=== PATIENT | male | born 1970 | race African-American/Black ===

== ENCOUNTER 2021-05-22 09:05 | Emergency (ER) | payer MEDICAID ==
[~2021-05-22] VITALS: Ht 182.9 cm; Wt 160.0 kg
[2021-05-22 09:07] VITALS: BP 126/70
[2021-05-22] MEDS ORDERED: ACETAMINOPHEN 325MG TABLET PO ONE (09:30)
== END 2021-05-22 09:44 | disposition left against medical advice (07) ==
LOC: ER 09:05
DX: M79.672 Pain in left foot (principal); M25.522 Pain in left elbow; I11.0 Hypertensive heart disease with heart failure; I50.9 Heart failure, unspecified; E11.9 Type 2 diabetes mellitus without complications; Z13.9 Encounter for screening, unspecified; Z86.73 Personal history of transient ischemic attack (TIA), and cerebral infarction without residual deficits; Z98.890 Other specified postprocedural states; W03.XXXA Other fall on same level due to collision with another person, initial encounter; Y93.89 Activity, other specified; Y92.89 Other specified places as the place of occurrence of the external cause; Y99.8 Other external cause status
CPT/HCPCS: 99283

== ENCOUNTER 2021-05-22 10:54 | Emergency (ER) | payer MEDICAID ==
[~2021-05-22] VITALS: Ht 180.3 cm; Wt 120.0 kg
[2021-05-22 11:00] VITALS: BP 139/75
[2021-05-22] MEDS ORDERED: HYDROCODONE/ACETAMINOPHEN 5/325MG TABLET PO STA (11:02)
== END 2021-05-22 12:20 | disposition left against medical advice (07) ==
LOC: ER 11:24
DX: S90.32XA Contusion of left foot, initial encounter (principal); S50.01XA Contusion of right elbow, initial encounter; I11.0 Hypertensive heart disease with heart failure; I50.9 Heart failure, unspecified; E11.9 Type 2 diabetes mellitus without complications; Z86.73 Personal history of transient ischemic attack (TIA), and cerebral infarction without residual deficits; W18.30XA Fall on same level, unspecified, initial encounter; Y93.89 Activity, other specified; Y92.89 Other specified places as the place of occurrence of the external cause; Y99.8 Other external cause status
CPT/HCPCS: 71045; 73080; 73630; 99284; Z7610

== ENCOUNTER 2021-11-27 12:33 | Inpatient (IN) | payer MEDICAID, OTHER ==
[~2021-11-27] VITALS: Ht 182.9 cm; Wt 215.9 kg
[2021-11-27 13:47] LABS: EOSINOPHILS % 1.9 % (0.0-5.0); HEMATOCRIT. 44.9 % (42.0-52.0); HEMOGLOBIN. 14.5 g/dL (14.0-18.0); LYMPHOCYTES % 16.2 % (20.0-50.0); MEAN CORPUSCULAR HEMOGLOBIN 28.5 pg (28.0-32.0); MEAN CORPUSCULAR VOLUME 88.4 fL (80.0-94.0); MEAN PLATELET VOLUME 8.8 fl (7.4-10.4); MONOCYTES % 9.6 % (2.0-8.0); NEUTROPHILS % 71.3 % (40.0-76.0); PLATELET 276 x1000/uL (130-400); RED BLOOD CELL COUNT 5.09 mill/uL (4.7-6.1)
[2021-11-27 13:52] LABS: CHLORIDE 107 mEq/L (98-107)
[2021-11-27 14:15] LABS: DIGOXIN < 0.1 ng/mL (0.9-2.0)
[2021-11-27] MEDS ORDERED: ASPIRIN 325MG EC TABLET PO ONE (22:15)
[2021-11-27] MEDS ORDERED: FUROSEMIDE 40MG TABLET PO ONE (22:15)
[2021-11-28 07:14] LABS: CLARITY URINE CLEAR (CLEAR); COLOR URINE DARK YELLOW (YELLOW); KETONES URINE TRACE (NEGATIVE); LEUKOCYTE ESTERASE URINE NEGATIVE (NEGATIVE); NITRITE URINE NEGATIVE (NEGATIVE); OCCULT BLOOD URINE NEGATIVE (NEGATIVE); PROTEIN URINE 3+ (NEGATIVE); SPECIFIC GRAVITY URINE 1.021 (1.005-1.030)
[2021-11-28] MEDS ORDERED: ONDANSETRON HCL 4MG/2ML INJ IV PRN (09:45)
[2021-11-28 10:39] VITALS: BP 132/111
[2021-11-28] MEDS ORDERED: ASPI-986 PO (11:09)
[2021-11-28] MEDS ORDERED: FURO40TA5 PO (11:09)
[2021-11-28] MEDS ORDERED: SIMV10TA97 PO (11:09)
[2021-11-28 12:00] VITALS: BP 132/103
[2021-11-28] MEDS: DOCUSATE SODIUM 250MG CAPSULE PO SCH (13:39)
[2021-11-28 16:00] VITALS: BP 119/89
[2021-11-28] MEDS: FUROSEMIDE 40MG/4ML VIAL IVP SCH (17:04)
[2021-11-28] MEDS: LISINOPRIL 5MG TABLET PO SCH (17:04)
[2021-11-28 20:00] VITALS: BP 135/88
[2021-11-28] MEDS: CARVEDILOL 6.25 MG TABLET PO SCH (21:22)
[2021-11-29] VITALS: BP 137/92
[2021-11-29 00:10] LABS: *AMPHETAMINES SCREEN URINE NEGATIVE (NEGATIVE); *BARBITURATES SCREEN URINE NEGATIVE (NEGATIVE); *BENZODIAZEPINES SCREEN URINE NEGATIVE (NEGATIVE); *COCAINE SCREEN URINE NEGATIVE (NEGATIVE)
[2021-11-29 00:11] LABS: CANNABINOID URINE SCREEN PRESUMTIVE POSITIVE (NEGATIVE); METHADONE URINE SCREEN NEGATIVE (NEGATIVE); OPIATES URINE SCREEN NEGATIVE (NEGATIVE); PHENCYCLIDINE URINE SCREEN PRESUMTIVE POSITIVE (NEGATIVE)
[2021-11-29] MEDS: ACETAMINOPHEN 325MG TABLET PO PRN (00:54)
[2021-11-29 04:00] VITALS: BP 130/98
[2021-11-29 08:00] VITALS: BP 116/58
[2021-11-29] MEDS: DOCUSATE SODIUM 250MG CAPSULE PO SCH (10:10)
[2021-11-29] MEDS: FUROSEMIDE 40MG/4ML VIAL IVP SCH ×2 (10:10→18:48)
[2021-11-29] MEDS: LISINOPRIL 5MG TABLET PO SCH (10:11)
[2021-11-29] MEDS: CARVEDILOL 6.25 MG TABLET PO SCH ×2 (10:11→21:35)
[2021-11-29 12:00] VITALS: BP 108/49
[2021-11-29] MEDS ORDERED: COR6 PO (14:04)
[2021-11-29] MEDS ORDERED: LISI-186 PO (14:04)
[2021-11-29 16:00] VITALS: BP 100/47
[2021-11-29 20:00] VITALS: BP 115/72
[2021-11-30] VITALS: BP 127/61
[2021-11-30 04:00] VITALS: BP 103/59
[2021-11-30 08:00] VITALS: BP 141/103
[2021-11-30] MEDS: LISINOPRIL 5MG TABLET PO SCH (09:19)
[2021-11-30] MEDS: DOCUSATE SODIUM 250MG CAPSULE PO SCH (09:19)
[2021-11-30] MEDS: FUROSEMIDE 40MG/4ML VIAL IVP SCH ×2 (09:20→16:52)
[2021-11-30] MEDS: CARVEDILOL 6.25 MG TABLET PO SCH ×2 (09:20→20:37)
[2021-11-30 12:00] VITALS: BP 126/85
[2021-11-30] MEDS: BENZONATATE 100MG CAPSULE PO PRN ×2 (12:35→20:37)
[2021-11-30] MEDS: ACETAMINOPHEN 325MG TABLET PO PRN (12:36)
[2021-11-30 16:00] VITALS: BP 124/85
[2021-11-30 20:00] VITALS: BP 112/55
[2021-12-01] VITALS: BP 133/82
[2021-12-01] MEDS: ACETAMINOPHEN 325MG TABLET PO PRN
[2021-12-01 04:00] VITALS: BP 135/91
[2021-12-01 08:00] VITALS: BP 104/69
[2021-12-01] MEDS: LISINOPRIL 5MG TABLET PO SCH (09:00)
[2021-12-01] MEDS: DOCUSATE SODIUM 250MG CAPSULE PO SCH (09:00)
[2021-12-01] MEDS: CARVEDILOL 6.25 MG TABLET PO SCH ×2 (09:00→20:40)
[2021-12-01] MEDS ORDERED: LACTULOSE 20G/30ML UDC PO NR (09:45)
[2021-12-01] MEDS: FUROSEMIDE 40MG/4ML VIAL IVP SCH ×2 (10:28→17:10)
[2021-12-01 12:00] VITALS: BP 146/107
[2021-12-01 20:00] VITALS: BP 118/74
[2021-12-02] VITALS: BP 110/59
[2021-12-02 04:00] VITALS: BP 133/82
[2021-12-02 08:00] VITALS: BP 152/85
[2021-12-02] MEDS: BENZONATATE 100MG CAPSULE PO PRN (09:11)
[2021-12-02] MEDS: FUROSEMIDE 40MG/4ML VIAL IVP SCH ×2 (09:12→18:17)
[2021-12-02] MEDS: LISINOPRIL 5MG TABLET PO SCH (09:12)
[2021-12-02] MEDS: DOCUSATE SODIUM 250MG CAPSULE PO SCH (09:12)
[2021-12-02] MEDS: CARVEDILOL 6.25 MG TABLET PO SCH ×2 (09:12→21:38)
[2021-12-02 12:00] VITALS: BP 133/85
[2021-12-02] MEDS ORDERED: LACTULOSE 20G/30ML UDC PO NR (13:00)
[2021-12-02 16:00] VITALS: BP 137/93
[2021-12-02 20:00] VITALS: BP 117/75
[2021-12-03] VITALS: BP 101/60
[2021-12-03 04:00] VITALS: BP 110/82
[2021-12-03 08:15] VITALS: BP 115/62
[2021-12-03] MEDS: FUROSEMIDE 40MG/4ML VIAL IVP SCH ×2 (09:00→16:23)
[2021-12-03] MEDS: DOCUSATE SODIUM 250MG CAPSULE PO SCH (09:01)
[2021-12-03] MEDS: LISINOPRIL 5MG TABLET PO SCH (09:01)
[2021-12-03] MEDS: CARVEDILOL 6.25 MG TABLET PO SCH ×2 (09:01→20:57)
[2021-12-03 11:39] VITALS: BP 96/51
[2021-12-03] MEDS ORDERED: SORBITOL 70% SOLN 30ML PO NR (12:30)
[2021-12-03 16:03] VITALS: BP 111/66
[2021-12-03 20:00] VITALS: BP 111/80
[2021-12-03 22:02] LABS: CHLORIDE 103 mEq/L (98-107)
[2021-12-04] VITALS: BP 105/63
[2021-12-04] MEDS: ACETAMINOPHEN 325MG TABLET PO PRN ×2 (00:42→12:02)
[2021-12-04 04:00] VITALS: BP 110/72
[2021-12-04 08:00] VITALS: BP 133/91
[2021-12-04] MEDS: DOCUSATE SODIUM 250MG CAPSULE PO SCH (09:42)
[2021-12-04] MEDS: LISINOPRIL 5MG TABLET PO SCH (09:42)
[2021-12-04] MEDS: FUROSEMIDE 40MG/4ML VIAL IVP SCH ×2 (09:42→17:28)
[2021-12-04] MEDS: CARVEDILOL 6.25 MG TABLET PO SCH ×2 (09:42→21:00)
[2021-12-04 12:00] VITALS: BP 125/89
[2021-12-04] MEDS ORDERED: ALLOPURINOL 300 MG TABLET PO SCH (15:30)
[2021-12-04 16:00] VITALS: BP 135/91
[2021-12-04 20:00] VITALS: BP 120/84
[2021-12-04] MEDS: COLCHICINE 0.6MG TABLET PO SCH (22:13)
[2021-12-05] VITALS: BP 120/65
[2021-12-05 04:00] VITALS: BP 135/79
[2021-12-05 08:00] VITALS: BP 129/86
[2021-12-05] MEDS: FUROSEMIDE 40MG/4ML VIAL IVP SCH ×2 (10:03→16:05)
[2021-12-05] MEDS: DOCUSATE SODIUM 250MG CAPSULE PO SCH (10:03)
[2021-12-05] MEDS: COLCHICINE 0.6MG TABLET PO SCH ×2 (10:04→22:44)
[2021-12-05] MEDS: LISINOPRIL 5MG TABLET PO SCH (10:04)
[2021-12-05] MEDS: CARVEDILOL 6.25 MG TABLET PO SCH ×2 (10:04→22:43)
[2021-12-05 12:00] VITALS: BP 116/67
[2021-12-05 16:00] VITALS: BP 132/92
[2021-12-05] MEDS: ACETAMINOPHEN 325MG TABLET PO PRN (16:05)
[2021-12-05 20:00] VITALS: BP 114/60
[2021-12-06] VITALS: BP 128/70
[2021-12-06 04:00] VITALS: BP 150/66
[2021-12-06 08:00] VITALS: BP 133/92
[2021-12-06] MEDS: FUROSEMIDE 40MG/4ML VIAL IVP SCH ×2 (09:49→17:59)
[2021-12-06] MEDS: DOCUSATE SODIUM 250MG CAPSULE PO SCH (09:49)
[2021-12-06] MEDS: LISINOPRIL 5MG TABLET PO SCH (09:49)
[2021-12-06] MEDS: CARVEDILOL 6.25 MG TABLET PO SCH ×2 (09:49→20:50)
[2021-12-06] MEDS: COLCHICINE 0.6MG TABLET PO SCH ×2 (09:49→20:49)
[2021-12-06] MEDS: ALLOPURINOL 100 MG TABLET PO SCH (09:51)
[2021-12-06 12:00] VITALS: BP 129/65
[2021-12-06] MEDS: ACETAMINOPHEN 325MG TABLET PO PRN (13:46)
[2021-12-06] MEDS ORDERED: SORBITOL 70% SOLN 30ML PO SCH (14:30)
[2021-12-06 16:00] VITALS: BP 112/80
[2021-12-06 20:00] VITALS: BP 107/64
[2021-12-07] VITALS (7 sets, daily range): BP systolic 92–134; BP diastolic 59–96
[2021-12-07] MEDS: DOCUSATE SODIUM 250MG CAPSULE PO SCH (09:48)
[2021-12-07] MEDS: ALLOPURINOL 100 MG TABLET PO SCH (09:48)
[2021-12-07] MEDS: FUROSEMIDE 40MG/4ML VIAL IVP SCH ×2 (09:48→17:48)
[2021-12-07] MEDS: LISINOPRIL 5MG TABLET PO SCH (09:48)
[2021-12-07] MEDS: CARVEDILOL 6.25 MG TABLET PO SCH ×2 (09:49→20:41)
[2021-12-07] MEDS: COLCHICINE 0.6MG TABLET PO SCH ×2 (09:49→20:38)
[2021-12-07] MEDS ORDERED: LACTULOSE 20G/30ML UDC PO PRN (13:45)
[2021-12-08 04:00] VITALS: BP 125/83
[2021-12-08 08:00] VITALS: BP 127/91
[2021-12-08] MEDS: ALLOPURINOL 100 MG TABLET PO SCH (08:15)
[2021-12-08] MEDS: FUROSEMIDE 40MG/4ML VIAL IVP SCH ×2 (08:15→17:07)
[2021-12-08] MEDS: COLCHICINE 0.6MG TABLET PO SCH ×2 (08:16→20:21)
[2021-12-08] MEDS: DOCUSATE SODIUM 250MG CAPSULE PO SCH (08:16)
[2021-12-08] MEDS: LISINOPRIL 5MG TABLET PO SCH (08:16)
[2021-12-08] MEDS: CARVEDILOL 6.25 MG TABLET PO SCH ×2 (08:17→20:21)
[2021-12-08 12:00] VITALS: BP 127/77
[2021-12-08 16:00] VITALS: BP 145/81
[2021-12-08 19:33] LABS: CHLORIDE 103 mEq/L (98-107)
[2021-12-08 20:00] VITALS: BP 132/72
[2021-12-08] MEDS: ACETAMINOPHEN 325MG TABLET PO PRN (20:22)
[2021-12-08] MEDS ORDERED: SODIUM POLYSTYRENE SULFONATE 15 G/60 ML BOT PO NR (23:30)
[2021-12-09] VITALS: BP 101/63
[2021-12-09 04:00] VITALS: BP 125/90
[2021-12-09 08:00] VITALS: BP 119/69
[2021-12-09] MEDS: DOCUSATE SODIUM 250MG CAPSULE PO SCH (09:14)
[2021-12-09] MEDS: FUROSEMIDE 40MG/4ML VIAL IVP SCH ×2 (09:14→17:46)
[2021-12-09] MEDS: CARVEDILOL 6.25 MG TABLET PO SCH ×2 (09:15→20:30)
[2021-12-09] MEDS: ALLOPURINOL 100 MG TABLET PO SCH (09:15)
[2021-12-09] MEDS: COLCHICINE 0.6MG TABLET PO SCH ×2 (09:15→20:30)
[2021-12-09] MEDS: LISINOPRIL 5MG TABLET PO SCH (09:15)
[2021-12-09 12:00] VITALS: BP 136/94
[2021-12-09 16:00] VITALS: BP 131/84
[2021-12-09 20:00] VITALS: BP 138/95
[2021-12-10] VITALS: BP 113/52
[2021-12-10 04:00] VITALS: BP 135/93
[2021-12-10 08:00] VITALS: BP 149/97
[2021-12-10] MEDS: ALLOPURINOL 100 MG TABLET PO SCH (08:40)
[2021-12-10] MEDS: DOCUSATE SODIUM 250MG CAPSULE PO SCH (08:40)
[2021-12-10] MEDS: COLCHICINE 0.6MG TABLET PO SCH ×2 (08:40→20:15)
[2021-12-10] MEDS: CARVEDILOL 6.25 MG TABLET PO SCH (08:40)
[2021-12-10] MEDS: LISINOPRIL 5MG TABLET PO SCH (08:41)
[2021-12-10] MEDS: FUROSEMIDE 40MG/4ML VIAL IVP SCH ×2 (09:46→16:41)
[2021-12-10 12:00] VITALS: BP 132/75
[2021-12-10 16:00] VITALS: BP 134/87
[2021-12-10 20:00] VITALS: BP 131/83
[2021-12-10] MEDS: CARVEDILOL 12.5MG TABLET PO SCH (20:15)
[2021-12-11] VITALS: BP 133/62
[2021-12-11 04:00] VITALS: BP 132/81
[2021-12-11 08:00] VITALS: BP 130/88
[2021-12-11] MEDS: LISINOPRIL 5MG TABLET PO SCH (08:53)
[2021-12-11] MEDS: FUROSEMIDE 40MG/4ML VIAL IVP SCH ×2 (08:53→17:48)
[2021-12-11] MEDS: DOCUSATE SODIUM 250MG CAPSULE PO SCH (08:53)
[2021-12-11] MEDS: ALLOPURINOL 100 MG TABLET PO SCH (08:53)
[2021-12-11] MEDS: COLCHICINE 0.6MG TABLET PO SCH ×2 (08:53→20:13)
[2021-12-11] MEDS: CARVEDILOL 12.5MG TABLET PO SCH ×2 (08:53→20:14)
[2021-12-11 12:00] VITALS: BP 107/54
[2021-12-11 16:00] VITALS: BP 106/60
[2021-12-11 20:00] VITALS: BP 118/62
[2021-12-12] VITALS: BP 126/75
[2021-12-12 04:00] VITALS: BP 131/73
[2021-12-12 08:00] VITALS: BP 120/80
[2021-12-12] MEDS: COLCHICINE 0.6MG TABLET PO SCH ×2 (09:40→20:20)
[2021-12-12] MEDS: FUROSEMIDE 40MG/4ML VIAL IVP SCH ×2 (09:40→17:37)
[2021-12-12] MEDS: DOCUSATE SODIUM 250MG CAPSULE PO SCH (09:40)
[2021-12-12] MEDS: ALLOPURINOL 100 MG TABLET PO SCH (09:40)
[2021-12-12] MEDS: LISINOPRIL 5MG TABLET PO SCH (09:45)
[2021-12-12] MEDS: CARVEDILOL 12.5MG TABLET PO SCH ×2 (09:47→20:20)
[2021-12-12 12:00] VITALS: BP 122/79
[2021-12-12 16:00] VITALS: BP 127/86
[2021-12-13] VITALS: BP 109/73
[2021-12-13 04:00] VITALS: BP 138/89
[2021-12-13 08:00] VITALS: BP 135/84
[2021-12-13] MEDS: ALLOPURINOL 100 MG TABLET PO SCH (09:33)
[2021-12-13] MEDS: CARVEDILOL 12.5MG TABLET PO SCH ×2 (09:33→21:18)
[2021-12-13] MEDS: COLCHICINE 0.6MG TABLET PO SCH ×2 (09:34→21:18)
[2021-12-13] MEDS: LISINOPRIL 5MG TABLET PO SCH (09:34)
[2021-12-13] MEDS: FUROSEMIDE 40MG/4ML VIAL IVP SCH ×2 (09:34→17:35)
[2021-12-13] MEDS: DOCUSATE SODIUM 250MG CAPSULE PO SCH (09:34)
[2021-12-13 12:00] VITALS: BP 135/84
[2021-12-13 16:00] VITALS: BP 109/84
[2021-12-13 20:00] VITALS: BP 141/92
[2021-12-14] VITALS: BP 118/81
[2021-12-14 04:00] VITALS: BP 124/80
[2021-12-14 08:00] VITALS: BP 134/101
[2021-12-14] MEDS: DOCUSATE SODIUM 250MG CAPSULE PO SCH (08:55)
[2021-12-14] MEDS: FUROSEMIDE 40MG/4ML VIAL IVP SCH ×2 (08:55→17:00)
[2021-12-14] MEDS: COLCHICINE 0.6MG TABLET PO SCH ×2 (08:55→21:37)
[2021-12-14] MEDS: CARVEDILOL 12.5MG TABLET PO SCH ×2 (08:56→21:00)
[2021-12-14] MEDS: ALLOPURINOL 100 MG TABLET PO SCH (08:56)
[2021-12-14] MEDS: LISINOPRIL 5MG TABLET PO SCH (08:56)
[2021-12-14 12:00] VITALS: BP 124/79
[2021-12-14 16:00] VITALS: BP 113/60
[2021-12-14 20:00] VITALS: BP 102/61
[2021-12-15] VITALS: BP 109/62
[2021-12-15 04:00] VITALS: BP 103/58
[2021-12-15 08:00] VITALS: BP 126/62
[2021-12-15] MEDS: FUROSEMIDE 40MG/4ML VIAL IVP SCH ×3 (09:00→16:44)
[2021-12-15] MEDS: COLCHICINE 0.6MG TABLET PO SCH ×2 (09:42→21:39)
[2021-12-15] MEDS: DOCUSATE SODIUM 250MG CAPSULE PO SCH (09:42)
[2021-12-15] MEDS: LISINOPRIL 5MG TABLET PO SCH (09:43)
[2021-12-15] MEDS: ALLOPURINOL 100 MG TABLET PO SCH (09:43)
[2021-12-15] MEDS: CARVEDILOL 12.5MG TABLET PO SCH ×2 (09:43→21:39)
[2021-12-15 11:37] LABS: CHLORIDE 103 mEq/L (98-107)
[2021-12-15 12:00] VITALS: BP 142/64
[2021-12-15 16:00] VITALS: BP_SYST 120; BP_SYST 122; BP_DIAS 79
[2021-12-15 20:00] VITALS: BP 100/52
[2021-12-16] VITALS: BP 101/61
[2021-12-16 04:00] VITALS: BP 125/69
[2021-12-16 08:00] VITALS: BP 116/80
[2021-12-16] MEDS: ALLOPURINOL 100 MG TABLET PO SCH (09:40)
[2021-12-16] MEDS: DOCUSATE SODIUM 250MG CAPSULE PO SCH (09:40)
[2021-12-16] MEDS: COLCHICINE 0.6MG TABLET PO SCH ×2 (09:40→21:59)
[2021-12-16] MEDS: CARVEDILOL 12.5MG TABLET PO SCH ×2 (09:41→21:00)
[2021-12-16] MEDS: LISINOPRIL 5MG TABLET PO SCH (09:41)
[2021-12-16] MEDS: FUROSEMIDE 40MG/4ML VIAL IVP SCH ×2 (09:41→16:57)
[2021-12-16 12:00] VITALS: BP 117/62
[2021-12-16 16:00] VITALS: BP 106/64
[2021-12-16 20:00] VITALS: BP 100/67
[2021-12-16] MEDS: ATORVASTATIN CALCIUM 20MG TABLET PO SCH (22:00)
[2021-12-17 08:00] VITALS: BP 139/92
[2021-12-17] MEDS: COLCHICINE 0.6MG TABLET PO SCH ×2 (08:45→21:18)
[2021-12-17] MEDS: LISINOPRIL 5MG TABLET PO SCH (08:46)
[2021-12-17] MEDS: ALLOPURINOL 100 MG TABLET PO SCH (08:46)
[2021-12-17] MEDS: CARVEDILOL 12.5MG TABLET PO SCH ×2 (08:46→21:18)
[2021-12-17] MEDS: DOCUSATE SODIUM 250MG CAPSULE PO SCH (08:46)
[2021-12-17] MEDS: FUROSEMIDE 40MG/4ML VIAL IVP SCH ×2 (08:46→17:57)
[2021-12-17 16:00] VITALS: BP 115/76
[2021-12-17 20:00] VITALS: BP 155/85
[2021-12-17] MEDS: ATORVASTATIN CALCIUM 20MG TABLET PO SCH (21:18)
[2021-12-18] VITALS: BP 121/61
[2021-12-18 04:00] VITALS: BP 130/70
[2021-12-18 08:00] VITALS: BP 103/76
[2021-12-18] MEDS: ALLOPURINOL 100 MG TABLET PO SCH (08:21)
[2021-12-18] MEDS: CARVEDILOL 12.5MG TABLET PO SCH ×2 (08:21→20:49)
[2021-12-18] MEDS: COLCHICINE 0.6MG TABLET PO SCH ×2 (08:21→20:49)
[2021-12-18] MEDS: DOCUSATE SODIUM 250MG CAPSULE PO SCH (08:21)
[2021-12-18] MEDS: LISINOPRIL 5MG TABLET PO SCH (08:22)
[2021-12-18] MEDS: FUROSEMIDE 40MG/4ML VIAL IVP SCH ×2 (08:22→17:10)
[2021-12-18 12:00] VITALS: BP 135/89
[2021-12-18 16:00] VITALS: BP 145/88
[2021-12-18 20:00] VITALS: BP 118/66
[2021-12-18] MEDS: ATORVASTATIN CALCIUM 20MG TABLET PO SCH (20:49)
[2021-12-18] MEDS: ACETAMINOPHEN 325MG TABLET PO PRN (21:01)
[2021-12-19] VITALS: BP 131/75
[2021-12-19] MEDS: ACETAMINOPHEN 325MG TABLET PO PRN (03:03)
[2021-12-19 04:00] VITALS: BP 119/59
[2021-12-19 08:00] VITALS: BP 115/62
[2021-12-19] MEDS: FUROSEMIDE 40MG/4ML VIAL IVP SCH ×2 (09:00→10:00)
[2021-12-19] MEDS: COLCHICINE 0.6MG TABLET PO SCH ×2 (09:59→21:23)
[2021-12-19] MEDS: LISINOPRIL 5MG TABLET PO SCH (09:59)
[2021-12-19] MEDS: DOCUSATE SODIUM 250MG CAPSULE PO SCH (09:59)
[2021-12-19] MEDS: CARVEDILOL 12.5MG TABLET PO SCH ×2 (10:00→21:24)
[2021-12-19] MEDS: ALLOPURINOL 100 MG TABLET PO SCH (10:00)
[2021-12-19 12:00] VITALS: BP 111/80
[2021-12-19] MEDS: FUROSEMIDE 40MG TABLET PO SCH (17:32)
[2021-12-19 20:00] VITALS: BP 144/69
[2021-12-19] MEDS: ATORVASTATIN CALCIUM 20MG TABLET PO SCH (21:23)
[2021-12-20] VITALS: BP 140/75
[2021-12-20 04:00] VITALS: BP 140/87
[2021-12-20] MEDS: FUROSEMIDE 40MG TABLET PO SCH ×2 (06:07→16:35)
[2021-12-20] MEDS: ACETAMINOPHEN 325MG TABLET PO PRN (06:11)
[2021-12-20 08:00] VITALS: BP 135/91
[2021-12-20] MEDS: DOCUSATE SODIUM 250MG CAPSULE PO SCH (08:25)
[2021-12-20] MEDS: CARVEDILOL 12.5MG TABLET PO SCH ×2 (08:25→20:58)
[2021-12-20] MEDS: COLCHICINE 0.6MG TABLET PO SCH ×2 (08:25→20:57)
[2021-12-20] MEDS: ALLOPURINOL 100 MG TABLET PO SCH (08:25)
[2021-12-20] MEDS: LISINOPRIL 5MG TABLET PO SCH (08:25)
[2021-12-20 12:00] VITALS: BP 127/83
[2021-12-20 16:00] VITALS: BP 124/89
[2021-12-20 20:00] VITALS: BP 117/80
[2021-12-20] MEDS: ATORVASTATIN CALCIUM 20MG TABLET PO SCH (20:57)
[2021-12-20] MEDS ORDERED: ACETAMINOPHEN WITH CODEINE 300/30MG TABLET PO PRN (22:45)
[2021-12-21] VITALS: BP 131/87
[2021-12-21 04:00] VITALS: BP 135/82
[2021-12-21] MEDS: FUROSEMIDE 40MG TABLET PO SCH ×2 (06:16→17:49)
[2021-12-21 08:00] VITALS: BP 119/76
[2021-12-21] MEDS: ALLOPURINOL 100 MG TABLET PO SCH (08:50)
[2021-12-21] MEDS: COLCHICINE 0.6MG TABLET PO SCH ×2 (08:50→20:30)
[2021-12-21] MEDS: CARVEDILOL 12.5MG TABLET PO SCH ×2 (08:50→20:30)
[2021-12-21] MEDS: DOCUSATE SODIUM 250MG CAPSULE PO SCH (08:50)
[2021-12-21] MEDS: LISINOPRIL 5MG TABLET PO SCH (08:50)
[2021-12-21 12:00] VITALS: BP 118/78
[2021-12-21 16:00] VITALS: BP 135/84
[2021-12-21 20:00] VITALS: BP 136/70
[2021-12-21] MEDS: ATORVASTATIN CALCIUM 20MG TABLET PO SCH (20:30)
[2021-12-22] VITALS: BP 134/80
[2021-12-22 04:00] VITALS: BP 130/86
[2021-12-22] MEDS: FUROSEMIDE 40MG TABLET PO SCH ×2 (06:24→17:35)
[2021-12-22 08:00] VITALS: BP 134/84
[2021-12-22] MEDS: DOCUSATE SODIUM 250MG CAPSULE PO SCH (08:54)
[2021-12-22] MEDS: COLCHICINE 0.6MG TABLET PO SCH ×2 (08:54→20:56)
[2021-12-22] MEDS: CARVEDILOL 12.5MG TABLET PO SCH ×2 (08:55→20:56)
[2021-12-22] MEDS: ALLOPURINOL 100 MG TABLET PO SCH (08:55)
[2021-12-22] MEDS: LISINOPRIL 5MG TABLET PO SCH (08:56)
[2021-12-22 12:00] VITALS: BP 128/72
[2021-12-22 16:00] VITALS: BP 119/86
[2021-12-22 20:00] VITALS: BP 132/84
[2021-12-22] MEDS: ATORVASTATIN CALCIUM 20MG TABLET PO SCH (20:56)
[2021-12-23] VITALS: BP 126/72
[2021-12-23 04:00] VITALS: BP 120/63
[2021-12-23] MEDS: FUROSEMIDE 40MG TABLET PO SCH ×2 (06:21→17:21)
[2021-12-23 08:00] VITALS: BP 115/70
[2021-12-23] MEDS: DOCUSATE SODIUM 250MG CAPSULE PO SCH (09:07)
[2021-12-23] MEDS: COLCHICINE 0.6MG TABLET PO SCH ×2 (09:07→20:10)
[2021-12-23] MEDS: ALLOPURINOL 100 MG TABLET PO SCH (09:08)
[2021-12-23] MEDS: CARVEDILOL 12.5MG TABLET PO SCH ×2 (09:08→20:10)
[2021-12-23] MEDS: LISINOPRIL 5MG TABLET PO SCH (09:08)
[2021-12-23 12:00] VITALS: BP 108/66
[2021-12-23 16:00] VITALS: BP 117/78
[2021-12-23 20:00] VITALS: BP 113/86
[2021-12-23] MEDS: ATORVASTATIN CALCIUM 20MG TABLET PO SCH (20:10)
[2021-12-23] MEDS: ACETAMINOPHEN 325MG TABLET PO PRN (22:36)
[2021-12-24] VITALS: BP_SYST 113; BP_SYST 92; BP_DIAS 54; BP_DIAS 86
[2021-12-24 04:00] VITALS: BP 126/84
[2021-12-24] MEDS: FUROSEMIDE 40MG TABLET PO SCH ×2 (06:05→17:10)
[2021-12-24 08:00] VITALS: BP 129/75
[2021-12-24] MEDS: COLCHICINE 0.6MG TABLET PO SCH ×2 (09:33→20:54)
[2021-12-24] MEDS: DOCUSATE SODIUM 250MG CAPSULE PO SCH (09:33)
[2021-12-24] MEDS: ALLOPURINOL 100 MG TABLET PO SCH (09:34)
[2021-12-24] MEDS: LISINOPRIL 5MG TABLET PO SCH (09:34)
[2021-12-24] MEDS: CARVEDILOL 12.5MG TABLET PO SCH ×2 (09:34→20:54)
[2021-12-24 12:00] VITALS: BP 134/68
[2021-12-24 16:00] VITALS: BP 117/61
[2021-12-24 20:00] VITALS: BP 133/79
[2021-12-24] MEDS: ATORVASTATIN CALCIUM 20MG TABLET PO SCH (20:54)
[2021-12-25] VITALS: BP 119/80
[2021-12-25 04:00] VITALS: BP 136/61
[2021-12-25] MEDS: FUROSEMIDE 40MG TABLET PO SCH ×2 (06:50→16:17)
[2021-12-25 08:00] VITALS: BP 110/59
[2021-12-25] MEDS: DOCUSATE SODIUM 250MG CAPSULE PO SCH (09:24)
[2021-12-25] MEDS: LISINOPRIL 5MG TABLET PO SCH (09:25)
[2021-12-25] MEDS: COLCHICINE 0.6MG TABLET PO SCH ×2 (09:25→21:17)
[2021-12-25] MEDS: CARVEDILOL 12.5MG TABLET PO SCH ×2 (09:25→21:17)
[2021-12-25] MEDS: ALLOPURINOL 100 MG TABLET PO SCH (09:25)
[2021-12-25 12:00] VITALS: BP 122/66
[2021-12-25 16:00] VITALS: BP 126/89
[2021-12-25] MEDS ORDERED: COLC0.6C3 MT (17:07)
[2021-12-25] MEDS ORDERED: SIMV10TA97 PO (17:07)
[2021-12-25] MEDS ORDERED: FURO40TA5 PO (17:07)
[2021-12-25] MEDS ORDERED: ALLO100T PO (17:07)
[2021-12-25 20:00] VITALS: BP 133/84
[2021-12-25] MEDS: ATORVASTATIN CALCIUM 20MG TABLET PO SCH (21:16)
[2021-12-26] VITALS: BP 118/84
[2021-12-26 04:00] VITALS: BP 136/91
[2021-12-26 08:00] VITALS: BP 114/73
[2021-12-26] MEDS: DOCUSATE SODIUM 250MG CAPSULE PO SCH (09:20)
[2021-12-26] MEDS: FUROSEMIDE 40MG TABLET PO SCH ×2 (09:20→18:27)
[2021-12-26] MEDS: LISINOPRIL 5MG TABLET PO SCH (09:20)
[2021-12-26] MEDS: COLCHICINE 0.6MG TABLET PO SCH ×2 (09:21→21:59)
[2021-12-26] MEDS: ALLOPURINOL 100 MG TABLET PO SCH (09:21)
[2021-12-26] MEDS: CARVEDILOL 12.5MG TABLET PO SCH ×2 (09:21→22:09)
[2021-12-26 12:00] VITALS: BP 122/80
[2021-12-26 16:00] VITALS: BP 131/85
[2021-12-26 20:00] VITALS: BP 135/94
[2021-12-26] MEDS: ATORVASTATIN CALCIUM 20MG TABLET PO SCH (21:59)
[2021-12-27] VITALS: BP 133/88
[2021-12-27 04:00] VITALS: BP 110/80
[2021-12-27] MEDS: FUROSEMIDE 40MG TABLET PO SCH ×2 (06:31→17:09)
[2021-12-27 08:00] VITALS: BP 146/94
[2021-12-27] MEDS: COLCHICINE 0.6MG TABLET PO SCH ×2 (08:31→20:56)
[2021-12-27] MEDS: ALLOPURINOL 100 MG TABLET PO SCH (08:31)
[2021-12-27 12:00] VITALS: BP 143/96
[2021-12-27 16:00] VITALS: BP 135/93
[2021-12-27 20:00] VITALS: BP 143/94
[2021-12-27] MEDS: ATORVASTATIN CALCIUM 20MG TABLET PO SCH (20:56)
[2021-12-28] VITALS: BP 136/90
[2021-12-28 04:00] VITALS: BP 127/79
[2021-12-28] MEDS: FUROSEMIDE 40MG TABLET PO SCH ×2 (07:17→08:51)
[2021-12-28 08:00] VITALS: BP 122/78
[2021-12-28] MEDS: COLCHICINE 0.6MG TABLET PO SCH ×2 (08:50→20:36)
[2021-12-28] MEDS: ALLOPURINOL 100 MG TABLET PO SCH (08:50)
[2021-12-28 12:00] VITALS: BP 114/77
[2021-12-28] MEDS: TRAMADOL 50MG TABLET PO PRN ×2 (12:02→20:42)
[2021-12-28 16:00] VITALS: BP 124/81
[2021-12-28 20:00] VITALS: BP 144/93
[2021-12-28] MEDS: ATORVASTATIN CALCIUM 20MG TABLET PO SCH (20:36)
[2021-12-29] VITALS: BP 146/103
[2021-12-29 04:00] VITALS: BP 134/96
[2021-12-29] MEDS: FUROSEMIDE 40MG TABLET PO SCH ×2 (06:40→16:40)
[2021-12-29 08:00] VITALS: BP 140/96
[2021-12-29] MEDS: ALLOPURINOL 100 MG TABLET PO SCH (08:34)
[2021-12-29] MEDS: COLCHICINE 0.6MG TABLET PO SCH ×2 (08:34→20:57)
[2021-12-29 12:00] VITALS: BP 139/76
[2021-12-29 16:00] VITALS: BP 119/73
[2021-12-29 20:00] VITALS: BP 136/76
[2021-12-29] MEDS: ATORVASTATIN CALCIUM 20MG TABLET PO SCH (20:57)
[2021-12-29] MEDS ORDERED: NALOXONE HCL 0.4MG/ML VIAL IV PRN (22:15)
[2021-12-30] VITALS: BP 140/97
[2021-12-30] MEDS: TRAMADOL 50MG TABLET PO PRN (03:09)
[2021-12-30 04:00] VITALS: BP 146/92
[2021-12-30] MEDS: FUROSEMIDE 40MG TABLET PO SCH ×2 (06:19→16:41)
[2021-12-30 08:00] VITALS: BP 132/72
[2021-12-30] MEDS: ALLOPURINOL 100 MG TABLET PO SCH (08:35)
[2021-12-30] MEDS: COLCHICINE 0.6MG TABLET PO SCH ×2 (08:35→22:58)
[2021-12-30 12:00] VITALS: BP 121/78
[2021-12-30 16:00] VITALS: BP 125/77
[2021-12-30] MEDS: ATORVASTATIN CALCIUM 20MG TABLET PO SCH (22:58)
[2021-12-31] MEDS: TRAMADOL 50MG TABLET PO PRN ×2 (02:12→20:37)
[2021-12-31] MEDS: FUROSEMIDE 40MG TABLET PO SCH ×2 (06:40→16:34)
[2021-12-31 08:00] VITALS: BP 147/95
[2021-12-31] MEDS: ALLOPURINOL 100 MG TABLET PO SCH (08:59)
[2021-12-31] MEDS: COLCHICINE 0.6MG TABLET PO SCH ×2 (08:59→20:37)
[2021-12-31 12:00] VITALS: BP 114/74
[2021-12-31 16:00] VITALS: BP 120/83
[2021-12-31 20:00] VITALS: BP 152/95
[2021-12-31] MEDS: ATORVASTATIN CALCIUM 20MG TABLET PO SCH (20:37)
[2022-01-01] VITALS: BP 157/119
[2022-01-01 04:00] VITALS: BP 135/90
[2022-01-01] MEDS: FUROSEMIDE 40MG TABLET PO SCH (06:16)
[2022-01-01 08:00] VITALS: BP 144/96
[2022-01-01] MEDS: ALLOPURINOL 100 MG TABLET PO SCH (08:35)
[2022-01-01] MEDS: COLCHICINE 0.6MG TABLET PO SCH (08:35)
[2022-01-01 10:42] VITALS: BP 144/96
[2022-01-01 12:00] VITALS: BP 143/94
[2022-01-03 20:00] VITALS: BP 105/48
[2022-01-04] VITALS: BP 151/65
[2022-01-04 04:00] VITALS: BP 108/61
== END 2022-01-01 14:17 | DRG 203 ==
LOC: ER 12:33 → MICUSO 22:54 → 8WST 11-28 11:25 → 6EST 12-08 11:30
PROVIDERS: ADMIT Internal Medicine; ATTEND Internal Medicine
DX: M94.0 Chondrocostal junction syndrome [Tietze] (principal); I50.23 Acute on chronic systolic (congestive) heart failure; I42.9 Cardiomyopathy, unspecified; Z68.44 Body mass index [BMI] 60.0-69.9, adult; I11.0 Hypertensive heart disease with heart failure; E11.9 Type 2 diabetes mellitus without complications; E66.01 Morbid (severe) obesity due to excess calories; E78.5 Hyperlipidemia, unspecified; F16.10 Hallucinogen abuse, uncomplicated; Z20.822 Contact with and (suspected) exposure to COVID-19; M10.9 Gout, unspecified; J44.9 Chronic obstructive pulmonary disease, unspecified; Z86.73 Personal history of transient ischemic attack (TIA), and cerebral infarction without residual deficits; Z79.82 Long term (current) use of aspirin; Z79.84 Long term (current) use of oral hypoglycemic drugs; Z79.899 Other long term (current) drug therapy; Z83.3 Family history of diabetes mellitus; Z82.49 Family history of ischemic heart disease and other diseases of the circulatory system; Z71.51 Drug abuse counseling and surveillance of drug abuser; Z71.3 Dietary counseling and surveillance
CPT/HCPCS: 36415; 71045; 73080; 73630; 80048; 80053; 80162; 80305; 81003; 83036; 83880; 84484; 84550; 85025; 87426; 93005; 93306; 97110; 97116; 97162; 97164; 97166; 97168; 99285; C1893; J1940